=== PATIENT | female | born 1985 | race Caucasian/White ===

== ENCOUNTER → 2016-11-08 | Outpatient (CLI) | payer MEDICAID ==
[~2016-11-08] MED LIST: MIRALAX17 GM/PACK PO; MULTIPLE VITAMI1 TA5 PO; PERCOCET 5/3251 EACH PO
== END ==
LOC: LAB 17:06
DX: E07.81 Sick-euthyroid syndrome (principal)

== ENCOUNTER 2017-01-07 02:07 | Inpatient (IN) | payer MEDICAID ==
[~2017-01-07] VITALS: Ht 162.6 cm; Wt 97.1 kg
[~2017-01-07 02:07] MED LIST changes: -PERCOCET 5/3251 EACH PO
[2017-01-07 05:37] LABS: HEMOGLOBIN 11.2 g/dL (12.2-16.2); LYMPH # 1.9 K/mm3 (0.7-4.5)
[2017-01-07 05:38] VITALS: BP 115/68
--- NOTE | 2017-01-07 05:53 | ACUTE CARE PROGRESS NOTE (QUA) ---
Progress Notes Subjective Date 01/07/17 Time 0550 Assessment/Plan This inpt stay is expected to cross 2 MNs from start of care Yes (OB delivery) Comments: This 31-year-old 4, para 2, Ab1 white female is admitted at 39 weeks of gestation with irregular contractions at 3 cm of dilatation. Cervix is 80 percent effaced with a presenting vertex at -2 station. Amniotomy reveals clear fluid, and an internal monitor has been placed. She will be augmented with intravenous Pitocin with anticipation of a vaginal delivery. She plans to breast -feed. She wishes an epidural as soon as possible. She will be scheduled for a tubal ligation, per her wishes (permanent on chart). at 4022
[2017-01-07 06:30] LABS: ABO BLOOD TYPE A; RH BLOOD TYPE POSITIVE
--- NOTE | 2017-01-07 07:16 | ACUTE CARE PROGRESS NOTE (QUA) ---
Progress Notes Subjective Date 01/07/17 Time 0715 Note The patient is doing well. Epidural is in situ and working well. Cervix is now 90 percent, 5 cm, -1 station. Assessment/Plan This inpt stay is expected to cross 2 MNs from start of care Yes (OB delivery) at 0715
[2017-01-07 07:40] VITALS: BP 119/66
[2017-01-07 08:07] LABS: URINE BILIRUBIN - DIPSTICK NEGATIVE (NEG); URINE BLOOD NEGATIVE (NEG)
[2017-01-07 08:11] LABS: URINE SQUAMOUS CELLS OCC #/hpf (0-5)
[2017-01-07 08:12] LABS: URINE RENAL CELLS OCC #/HPF
--- NOTE | 2017-01-07 08:53 | ACUTE CARE PROGRESS NOTE (QUA) ---
Progress Notes Subjective Date 01/07/17 Time 0851 Note Cervix is now completely effaced, 7-8 cm, 0 station. Patient doing well. Assessment/Plan This inpt stay is expected to cross 2 MNs from start of care Yes (OB delivery) at 0892
--- NOTE | 2017-01-07 11:04 | Delivery Note ---
Delivery note Delivery date: 01/07/17 Delivery time: 1025 Anesthesia: Epidural Was labor medically induced? No Gestational age in weeks: 39 weeks Delivery prior to 39 weeks? No Justification for delivery: Active labor Sex: male score at one minute: 9 at 5 minutes: 9 Type of suction: bulb AF: Clear Delivery procedure: Normal Delivery Delivery of placenta: spontaneous Clinical note This 31-year-old 4, now para 3, AB 1 white female was admitted at 39 weeks of gestation with irregular contractions. She was augmented with intravenous Pitocin, and labored under labor epidural, which worked well. She went steadily to completion and delivered spontaneously, without an episiotomy, at 1025 on 01/07/17. Was no nuchal cord, no was there any meconium. The babies naso-and oropharynx were bulb suctioned, and the baby cried spontaneously on the perineum, as was delivered. The cord was clamped and cut, 3 vessels were noted to be within the cord, and cord blood was obtained. The cord pH was 7.35. He was handed into the arms of the attending RN, who assigned Apgars of 9 at 1 minute and 9 at 5 minutes to this 9 lbs. 6 oz., 20.5 inch male , born at 1025. The placenta delivered spontaneously, intact, at 1028, making the total time in labor 5 hours 28 minutes. The baby was recovered in excellent condition. The uterus was inspected and was felt to be clean, and was involuting well, with IV Pitocin running. There were no lacerations. The rectovaginal septum was intact at the close of the procedure. The patient tolerated the procedure well, and was recovered in excellent condition. The estimated blood loss was 350 mL. The patient's blood type is A positive. Rubella titer is immune. She is breast- feeding. She is scheduled for a tubal ligation later today. at 6155
--- NOTE | 2017-01-07 13:26 | Operative Note ---
Procedure/Operative Record Date of Procedure: 01/07/17 Referring physician: Dr. Hermosillo Pre-op diagnosis: Desire for sterilization Post-op diagnosis: Desire for sterilization Procedure performed: RIGHT tubal ligation and LEFT salpingectomy Surgeon: Jakob Mcgraw Anesthesia: JAYNE Gomez Indications: Desire for sterilization Description of procedure: After the patient was prepped and draped in usual fashion, it was discovered that her epidural was no longer functioning, and she underwent general anesthesia, without complications. A semielliptical subumbilical incision was made and taken down through fat and fascia to the peritoneum, which was entered with Metzenbaum scissors and extended bilaterally. The involuting uterus was encountered. Using a finger sweep, the RIGHT tube was brought up into view and followed out to its fimbriated end. The midsection of the tube was grasped with a Beaufort clamp, and the tented up portion of the tube was crushed with a Rosina clamp and ligated with 2-0 Vicryl. The intervening segment of the tube was excised with Metzenbaum scissors, and the stumps coagulated with a Bovie. The tube was allowed to drop back into place. Procedure was carried out on the LEFT. However, because of some bleeding in the mesosalpinx, the entire LEFT tube was excised. There was also a 5 cm paratubal cyst, which was initially drained, and then included within the tubal specimen. The tube was tied off with 2-0 Vicryl. There was no other pathology noted. The peritoneum was grasped with 2 Rosina clamps, and closed with a running unlocked suture of 2-0 Vicryl. The fascia was closed with a running locked suture of #1 Vicryl. The subcutaneous fat was closed with a running unlocked suture of 2-0 Vicryl. The skin was closed with a subcuticular suture of 3-0 Vicryl, infused with a dilute solution of Marcaine as a local anesthetic, and appropriately dressed. The sponge and needle counts correct. The estimated blood loss was less than 10 mL. The patient tolerated the procedure well, and was taken to PACU in excellent condition. EBL (ml): 10 Complications: None Specimens: RIGHT tubal segment, LEFT fallopian tube. at 1324
--- NOTE | 2017-01-07 15:21 | ACUTE CARE PROGRESS NOTE (QUA) ---
Progress Notes Subjective Date 01/07/17 Time 1520 Note This is day of delivery and day of surgery. The patient is afebrile. Vital signs stable. Wound clean. Abdomen soft. Lochia normal. Uterine fundus involuting well. Impression: Stable. Assessment/Plan This inpt stay is expected to cross 2 MNs from start of care Yes (OB delivery) at 1521
--- NOTE | 2017-01-08 06:34 | ACUTE CARE PROGRESS NOTE (QUA) ---
Progress Notes Subjective Date 01/08/17 Time 0633 Note This is /postop day number 1. Patient is afebrile. Vital signs stable. Abdomen slightly distended. Wound clean. Lochia normal. Uterine fundus involuting well. She is nursing well. The baby has been circumcised. She is experiencing a fair amount of pain from her tubal ligation, but she is stable. Assessment/Plan This inpt stay is expected to cross 2 MNs from start of care Yes (OB delivery) at 0676
[2017-01-08 07:03] LABS: HEMOGLOBIN 10.3 g/dL (12.2-16.2)
[2017-01-08 09:00] VITALS: BP 114/57
--- NOTE | 2017-01-08 15:00 | ACUTE CARE PROGRESS NOTE (QUA) ---
Progress Notes Subjective Date 01/08/17 Time 1459 Note The patient is afebrile. Vital signs stable. Wound clean. Abdomen soft. Uterine fundus involuting well. Impression: Stable. Assessment/Plan This inpt stay is expected to cross 2 MNs from start of care Yes (OB delivery) at 5517
[2017-01-08 22:07] VITALS: BP 120/61
--- NOTE | 2017-01-09 06:15 | ACUTE CARE PROGRESS NOTE (QUA) ---
Progress Notes Subjective Date 01/09/17 Time 0613 Note This is and postop day number 2. The patient is afebrile. Her vital signs are stable. Her wound is clean. Her abdomen is soft, but slightly distended. She is passing flatus, but no bowel movement yet. She states she is having pain in her LEFT lower quadrant, and is still having some difficulty walking. Her hemoglobin is 10.3 g, from an initial 11.2 g. The plan is to treat with Dulcolax today, and observe. Probably home tomorrow. Assessment/Plan This inpt stay is expected to cross 2 MNs from start of care Yes (OB delivery) at 0614
[2017-01-09 08:20] VITALS: BP 118/63
--- NOTE | 2017-01-09 09:43 | PHARMACY CLINIC NOTE ---
Patient Demographics Patient Demographics Admission date: 01/07/17 Date: 01/09/17 Time: 09 Allergies Coded Allergies: No Known Allergies (01/07/17) HEIGHT- FT: 5 IN: 4.00 K.070 VTE General Information Disclaimer The following section includes nursing documentation that has been pulled in for pharmacy review. VTE prophylaxis NQF [id number] VTE prophylaxis ordered? Yes Type of prophylaxis/treatment: ICD at 0942
[2017-01-09] MEDS ORDERED: PERCOCET 5/3251 EACH PO (13:40)
--- NOTE | 2017-01-10 06:04 | DISCHARGE SUMMARY STANDARD ---
Discharge Summary Date of admission: 01/07/17 Date of discharge: 01/09/17 Patient condition: Stable Discharge diagnosis (es): 1. Term intrauterine , delivered. 2. Desire for sterilization. 3. Anemia. Hospital course: This 31-year-old 4, now para 3, AB 1 white female was admitted at 39 weeks of gestation with irregular contractions. She was augmented with intravenous Pitocin, and labored under labor epidural, which worked well. She went steadily to completion, and delivered spontaneously, without an episiotomy, at 1025 on 01/07/17. The baby was an 99, 9 lbs. 6 oz., 20.5 inch male , who is breast-feeding, has been circumcised, and has done well. , the patient underwent a bilateral tubal ligation, without complications. Her blood type is A positive. Her rubella titer is immune. and postoperatively, the patient has done well. She is eating and ambulating, and has had a bowel movement. Her wound is clean. Her abdomen is soft. Her uterine fundus has involuted well. Her lochia is normal. She is discharged home on the second /postoperative day on iron and vitamins, and on Percocet 5/325 (number 30), 1 by mouth every 6 hours when necessary pain. She is not a smoker. Her hemoglobin on admission was 11.2 g; and postoperatively it is 10.3 g, but she is clinically stable. She is given appropriate instructions as to diet, exercise, and wound care, and she is to return to the office in 3 weeks for follow-up. at 0604
== END 2017-01-09 14:52 | disposition home or self-care (01) | DRG 767 ==
LOC: OB 02:07
PROVIDERS: Obstetrics & Gynecology
PROC: 0UT60ZZ Resection of Left Fallopian Tube, Open Approach (ICD-10-PCS; 2017-01-07)
PROC: 0U550ZZ Destruction of Right Fallopian Tube, Open Approach (ICD-10-PCS; 2017-01-07)
PROC: 10E0XZZ Delivery of Products of Conception, External Approach (ICD-10-PCS; principal; 2017-01-07 12:30)
DX: O80 Encounter for full-term uncomplicated delivery (principal); T88.52XA Failed moderate sedation during procedure, initial encounter; Z30.2 Encounter for sterilization; Z3A.39 39 weeks gestation of pregnancy; Z37.0 Single live birth
CPT/HCPCS: C1758

== ENCOUNTER 2017-08-17 18:34 | Emergency (ER) | payer MEDICAID ==
[~2017-08-17] VITALS: Ht 162.6 cm; Wt 88.5 kg
[~2017-08-17 18:34] MED LIST changes: +PERCOCET 5/3251 EACH PO
--- NOTE | 2017-08-17 18:42 | Emergency Room Report ---
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 Clinical Suspician of Infection? Mental Status: Sepsis Risk: Have you (or family members/close friends) recently traveled outside the [place]? If Yes, where/when: Have you had exposure to infectious disease within the past month? TB? Other? 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 No Angina: No [place]: No Hypertension? No Hyperlipidemia? No CHF? No DVT? No PE? No COPD? No Asthma? No Anemia? No GERD? No Gastric ulcers? No GI Bleed? No Hernia? No Thyroid Problems? No Hypothyroidism? No CVA? No Seizures? No Diabetes? No Renal Insuffiency? No End Stage Renal Disease? No UTI? No Stones? No BPH? No GB Disease: No Nephritic Syndrome? No Asplenia? No Hepatitis? No Sickle Cell Disease? No Arthritis? No Migraines? No Cataracts? No Glaucoma? No MRSA? No HIV? No TB? No Anxiety? No Depression? No Cancer? No More? No Immunization Hx DT/Tetanus 1-4 Years Ago Flu Refused Pneumonia Refuses Surgical Hx Previous Surgery?N Social History Alcohol Alcohol: No Review of Systems All Other Systems Reviewed and Negative Constitutional see HPI Skin see HPI Physical Exam Vital Signs Vital Signs Date Time Temp Pulse Resp B/P Pulse O2 O2 Flow FiO2 Ox Delivery Rate 08/17 1838 98.0 72 18 120/58 97 General Appearance normal appearance, WD/WN, no apparent distress Respiratory Status No: respiratory distress. 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 No Results/Orders Current Medication Orders Sig/Jess Start time Last Medication Dose Route Stop Time Status Admin Lidocaine HCl 0 .STK-MED ONE 08/17 1849 DC .ROUTE Diphtheria/Pertussis/ 0 .STK-MED ONE 08/17 1848 DC Tetanus Vacc IM Diphtheria/Pertussis/ 0.5 ML ONCE ONE 08/17 1845 DC Tetanus Vacc IM 08/17 1846 Lidocaine HCl 20 ML ONCE ONE 08/17 1845 DC IJ 08/17 1846 Procedures Laceration/Wound Repair Laceration/Wound Repair Risks/benefits discussed with pt/guardian? Yes Tetanus status not up to date, Given Tdap in the ED Wound Location finger(s) Wound Length (cm) 1 Wound's Depth, Shape sucutaneous tissue Wound Explored clean Risk of retained FB explained to pt/guardian? No Irrigated w/ Saline (ccs) 50 Wound Prep Hibiclens, Saline Anesthesia 1% Lidocaine Volume Anesthetic (ccs) 2 Wound Debrided none Wound Repaired With sutures Suture Size/Type 5:0, Ethilon Layer Closure No Total Number Sutures 3 Sterile Dressing Applied Yes Splint Applied No Departure Departure Time of Disposition 1848 Disposition DC Home or Self Care(routine) Clinical Impression Primary Impression: Laceration of finger Qualifiers: Encounter type: initial encounter Finger: little finger Damage to nail status: without damage Foreign body presence: without foreign body Laterality: left Qualified Code: S61.217A - Laceration without foreign body of left little finger without damage to nail, initial encounter Condition STABLE Patient Instructions DI for Laceration Repair, Laceration Repair Additional Instructions Keep stitches dry for 2 days. Take meds as directed. Return to the ED or followup with PCP in 7 to 8 days to remove stitches. Discharge Counseling Counseled pt/family regarding diagnosis, test results, home care, follow up needs Prescriptions Current Visit Scripts MUPIROCIN 2% (Bactroban Oint) 1 GM TP DAILY #1 TUBE Cephalexin (Keflex 250MG) 250 MG PO QID #40 CAP ED Critical Care Critical Care No If Critical Care minutes are documented, the time involved in the performance of seperately reportable procedures was not counted toward critical care time documented. I directly delivered medical care to this critically ill and/or injured patient. Timely evaluation and treatment was necessary to address the significant organ system(s) dysfunction present in this patient. at 1853
--- NOTE | 2017-08-17 18:42 | Emergency Room Report ---
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 Clinical Suspician of Infection? Mental Status: Sepsis Risk: Have you (or family members/close friends) recently traveled outside the [place]? If Yes, where/when: Have you had exposure to infectious disease within the past month? TB? Other? 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 No Angina: No [place]: No Hypertension? No Hyperlipidemia? No CHF? No DVT? No PE? No COPD? No Asthma? No Anemia? No GERD? No Gastric ulcers? No GI Bleed? No Hernia? No Thyroid Problems? No Hypothyroidism? No CVA? No Seizures? No Diabetes? No Renal Insuffiency? No End Stage Renal Disease? No UTI? No Stones? No BPH? No GB Disease: No Nephritic Syndrome? No Asplenia? No Hepatitis? No Sickle Cell Disease? No Arthritis? No Migraines? No Cataracts? No Glaucoma? No MRSA? No HIV? No TB? No Anxiety? No Depression? No Cancer? No More? No Immunization Hx DT/Tetanus 1-4 Years Ago Flu Refused Pneumonia Refuses Surgical Hx Previous Surgery?N Social History Alcohol Alcohol: No Review of Systems All Other Systems Reviewed and Negative Constitutional see HPI Skin see HPI Physical Exam Vital Signs Vital Signs Date Time Temp Pulse Resp B/P Pulse O2 O2 Flow FiO2 Ox Delivery Rate 08/17 1838 98.0 72 18 120/58 97 General Appearance normal appearance, WD/WN, no apparent distress Respiratory Status No: respiratory distress. 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 No Results/Orders Current Medication Orders Sig/Jess Start time Last Medication Dose Route Stop Time Status Admin Lidocaine HCl 0 .STK-MED ONE 08/17 1849 DC .ROUTE Diphtheria/Pertussis/ 0 .STK-MED ONE 08/17 1848 DC Tetanus Vacc IM Diphtheria/Pertussis/ 0.5 ML ONCE ONE 08/17 1845 DC Tetanus Vacc IM 08/17 1846 Lidocaine HCl 20 ML ONCE ONE 08/17 1845 DC IJ 08/17 1846 Procedures Laceration/Wound Repair Laceration/Wound Repair Risks/benefits discussed with pt/guardian? Yes Tetanus status not up to date, Given Tdap in the ED Wound Location finger(s) Wound Length (cm) 1 Wound's Depth, Shape sucutaneous tissue Wound Explored clean Risk of retained FB explained to pt/guardian? No Irrigated w/ Saline (ccs) 50 Wound Prep Hibiclens, Saline Anesthesia 1% Lidocaine Volume Anesthetic (ccs) 2 Wound Debrided none Wound Repaired With sutures Suture Size/Type 5:0, Ethilon Layer Closure No Total Number Sutures 3 Sterile Dressing Applied Yes Splint Applied No Departure Departure Time of Disposition 1848 Disposition DC Home or Self Care(routine) Clinical Impression Primary Impression: Laceration of finger Qualifiers: Encounter type: initial encounter Finger: little finger Damage to nail status: without damage Foreign body presence: without foreign body Laterality: left Qualified Code: S61.217A - Laceration without foreign body of left little finger without damage to nail, initial encounter Condition STABLE Patient Instructions DI for Laceration Repair, Laceration Repair Additional Instructions Keep stitches dry for 2 days. Take meds as directed. Return to the ED or followup with PCP in 7 to 8 days to remove stitches. Discharge Counseling Counseled pt/family regarding diagnosis, test results, home care, follow up needs Prescriptions Current Visit Scripts MUPIROCIN 2% (Bactroban Oint) 1 GM TP DAILY #1 TUBE Cephalexin (Keflex 250MG) 250 MG PO QID #40 CAP ED Critical Care Critical Care No If Critical Care minutes are documented, the time involved in the performance of seperately reportable procedures was not counted toward critical care time documented. I directly delivered medical care to this critically ill and/or injured patient. Timely evaluation and treatment was necessary to address the significant organ system(s) dysfunction present in this patient. at 1853
[2017-08-17] MEDS ORDERED: BACTROBAN2% TP (18:53)
[2017-08-17] MEDS ORDERED: KEFLEX250 M1 PO (18:53)
[2017-08-17 19:30] VITALS: BP 108/66
--- OUTSIDE RECORDS SUMMARY | 2017-08-18 05:32 | External Medical Summary Rpt | CCD ---
Author Author [employer] Organization [employer] Address Unknown Phone Unavailable Purpose Continuity of Care Document - through 2016
--- OUTSIDE RECORDS SUMMARY | 2017-08-18 05:32 | External Medical Summary Rpt | CCD ---
Author Author , MARGIE HANSON Address Unknown Phone [email or web address] Purpose Continuity of Care Document - through 2016 Problems Code Diagnosis DOS Provider Status O20.9 HEMORRHAGE IN EARLY , UNSPECIFIED
--- OUTSIDE RECORDS SUMMARY | 2017-08-18 05:32 | External Medical Summary Rpt | CCD ---
Demographics Preferred Language [place] Marital Status Unknown Anabaptism Affiliation Unknown Race Unknown Ethnic Group Unknown Author Author , MARGIE HANSON Address Unknown Phone Immunization Unable to retrieve immunization data due to connection failure with Immunization Registry. Please try again later.
--- OUTSIDE RECORDS SUMMARY | 2017-08-18 05:32 | External Medical Summary Rpt | CCD ---
Demographics Preferred Language [place] Marital Status Unknown Shinto Affiliation Unknown Race Unknown Ethnic Group Unknown Author Author , MARGIE HANSON Address Unknown Phone Immunization Unable to retrieve immunization data due to connection failure with Immunization Registry. Please try again later.
--- OUTSIDE RECORDS SUMMARY | 2017-08-18 05:32 | External Medical Summary Rpt | CCD ---
Author Author , MARGIE HANSON Address Unknown Phone .[employer] Purpose Continuity of Care Document - through 2016 Problems Code Diagnosis DOS Provider Status O20.9 HEMORRHAGE IN EARLY , UNSPECIFIED
== END 2017-08-17 19:31 | disposition home or self-care (01) ==
LOC: ER 18:34
PROC: 0HQGXZZ Repair Left Hand Skin, External Approach (ICD-10-PCS; principal; 2017-08-17)
DX: S61.217A Laceration without foreign body of left little finger without damage to nail, initial encounter (principal); Z23 Encounter for immunization; W26.0XXA Contact with knife, initial encounter; Y92.010 Kitchen of single-family (private) house as the place of occurrence of the external cause

== ENCOUNTER → 2017-10-14 | Outpatient (CLI) | payer MEDICAID ==
[~2017-10-14] MED LIST changes: +BACTROBAN2% TP; +KEFLEX250 M1 PO
--- NOTE | 2017-10-14 15:42 | RADIOLOGY REPORT PS360 ---
US THYROID HISTORY: Follow-up thyroid nodules THYROID NODULE ORDERING PHYSICIAN: Javier Desir MD PATIENT AGE: 32 years COMPARISON: 04/15/2017 FINDINGS: The right lobe measures 4.7 x 2.6 x 2.1 cm. There is a 12 x 7 mm mixed nodule in the lower pole unchanged. An 8 x 3 mm mixed nodules present in the upper pole small cystic component unchanged. The left lobe is 5 x 1.9 x 2 cm and contains a 4 mm cyst in the lower pole. The isthmus is thickened at 1 cm. IMPRESSION: Thyromegaly as before with no change in the bilateral thyroid nodules as described above.
== END ==
LOC: RAD 14:52 → LAB 14:52 → RAD 15:00
DX: E04.1 Nontoxic single thyroid nodule (principal)